=== PATIENT | male | born 1980 | race Hispanic/Latino ===

== ENCOUNTER 2017-02-19 22:22 | Emergency (ER) | payer OTHER ==
[2017-02-19 23:16] LABS: Basophils % (Auto) 0.6 % (0.0-1.8); Eosinophils % (Auto) 1.9 % (0.0-4.3); Hematocrit 43.4 % (35.5-45.6); Hemoglobin 14.5 gm/dl (11.8-15.2); Mean Corpuscular HGB Conc 33 % (32-34); Mean Corpuscular Hemoglobin 28 pg (28-32); Mean Corpuscular Volume 84 fl (84-94); Platelet Count 216 K/mm3 (140-440); Red Blood Count 5.18 M/mm3 (3.65-5.03); Red Cell Distribution Width 13.2 % (13.2-15.2); White Blood Count 7.8 K/mm3 (4.5-11.0)
[2017-02-19 23:29] LABS: INR 1.02 (0.87-1.13)
[2017-02-19 23:30] LABS: Partial Thromboplastin Time 28.4 Sec. (24.2-36.6)
[2017-02-19 23:41] LABS: Anion Gap 17 mmol/L; BUN/Creatinine Ratio 11.25; Blood Urea Nitrogen 9 mg/dL (9-20); Calcium 8.9 mg/dL (8.4-10.2); Carbon Dioxide 25 mmol/L (22-30); Creatine Kinase MB 1.6 ng/mL (0.0-4.0); Glucose 99 mg/dL (75-100); Potassium 4.1 mmol/L (3.6-5.0); Sodium 140 mmol/L (137-145)
[2017-02-20] MEDS ORDERED: NITROSTAT SL PRN (05:06)
[2017-02-20] MEDS ORDERED: TORADOL IM ONE (06:17)
--- NOTE | 2017-02-20 06:18 | Emergency Department Report ---
ED General Adult HPI - General Chief complaint: Chest Pain Stated complaint: CHEST PAIN Time Seen by Provider: 02/20/17 06:09 Source: patient, family Mode of arrival: Ambulatory Limitations: No Limitations - History of Present Illness Initial comments: This is a 37-year-old male. He is previously unknown to me. He reports a past medical history of "enlarged heart." His diversity specialist is Dr. Bermudez with [facility]. The patient presents to the ER complaining of chest pain. The chest pain has been present for 4 days. He reports that it is stinging in nature. He reports pain that increases with deep inspiration. He denies cough, and endorses decreased exercise tolerance. He denies diaphoresis, he also endorses tingling in the dorsal aspect of his left foot, and tingling from his left bicep distal. He denies recent trips greater than 4 hours, recent hospital admissions, there is no calf pain, there is no hematemesis. There is no bright red blood per rectum. -: Gradual Location: chest, left, upper extremity, lower extremity Severity scale (0 -10): 9 Quality: other (stinging) Consistency: intermittent Improves with: none Worsens with: none Associated Symptoms: chest pain - Related Data Previous Rx's Medication Instructions Recorded Last Taken Type Ketorolac [Toradol] 10 mg PO Q6H PRN #20 tablet 02/20/17 Unknown Rx Allergies Allergy/AdvReac Type Severity Reaction Status Date / Time No Known Allergies Allergy Verified 02/19/17 22:30 ED Review of Systems ROS: Stated complaint: CHEST PAIN Other details as noted in HPI Eyes: as per HPI ENT: as per HPI Respiratory: see HPI Cardiovascular: chest pain Gastrointestinal: as per HPI Genitourinary: as per HPI Musculoskeletal: as per HPI Skin: as per HPI Neurological: as per HPI Psychiatric: as per HPI Hematological/Lymphatic: as per HPI ED Past Medical Hx - Past Medical History Previous Medical History?: No - Surgical History Past Surgical History?: No - Social History Smoking Status: Never Smoker Substance Use Type: None - Medications Home Medications: Home Medications Medication Instructions Recorded Confirmed Last Taken Type Ketorolac [Toradol] 10 mg PO Q6H PRN #20 tablet 02/20/17 Unknown Rx ED Physical Exam - General Limitations: No Limitations General appearance: alert, in no apparent distress - Head Head exam: Present: atraumatic, normocephalic - Eye Eye exam: Present: normal appearance, EOMI. Absent: nystagmus - ENT ENT exam: Present: normal exam, normal orophraynx, mucous membranes moist, normal external ear exam - Neck Neck exam: Present: normal inspection, full ROM. Absent: tenderness, meningismus - Respiratory Respiratory exam: Present: normal lung sounds bilaterally. Absent: respiratory distress, wheezes, rales, rhonchi, stridor, chest wall tenderness - Cardiovascular Cardiovascular Exam: Present: regular rate, normal rhythm. Absent: systolic murmur, diastolic murmur, rubs, gallop - GI/Abdominal GI/Abdominal exam: Present: soft, normal bowel sounds. Absent: distended, tenderness, guarding, rebound, rigid, pulsatile mass - Rectal Rectal exam: Present: deferred - Extremities Exam Extremities exam: Present: normal inspection, full ROM, normal capillary refill. Absent: tenderness, pedal edema, joint swelling, calf tenderness - Back Exam Back exam: Present: normal inspection, full ROM. Absent: tenderness, CVA tenderness (R), CVA tenderness (L), muscle spasm, paraspinal tenderness, vertebral tenderness - Neurological Exam Neurological exam: Present: alert, oriented X3, normal gait, other (Extraocular movements intact. Tongue midline. No facial droop. Facial sensation intact to light touch in the V1, V2, V3 distribution bilaterally. 5 and 5 strength in 4 extremities.. Sensation is intact to light touch in 4 extremities.). Absent : motor sensory deficit - Psychiatric Psychiatric exam: Present: normal affect, normal mood - Skin Skin exam: Present: warm, dry, intact, normal color. Absent: rash ED Course Vital Signs 02/19/17 02/20/17 02/20/17 22:31 05:00 05:06 Temperature 98.4 F Pulse Rate 95 H 71 79 Respiratory 18 14 18 Rate Blood Pressure Blood Pressure 130/87 [Right] O2 Sat by Pulse 100 97 96 Oximetry 02/20/17 02/20/17 02/20/17 05:07 05:09 05:10 Temperature Pulse Rate 73 88 Respiratory 18 13 Rate Blood Pressure Blood Pressure [Right] O2 Sat by Pulse 100 96 Oximetry 02/20/17 02/20/17 02/20/17 05:12 05:15 05:20 Temperature Pulse Rate 73 85 90 Respiratory 15 16 Rate Blood Pressure 125/72 118/82 118/82 Blood Pressure [Right] O2 Sat by Pulse 90 93 Oximetry 02/20/17 02/20/17 02/20/17 05:26 05:30 05:36 Temperature Pulse Rate 71 103 H Respiratory 17 16 15 Rate Blood Pressure 125/90 114/75 114/75 Blood Pressure [Right] O2 Sat by Pulse 93 95 92 Oximetry 02/20/17 02/20/17 02/20/17 05:40 05:45 05:50 Temperature Pulse Rate 83 80 93 H Respiratory 16 13 16 Rate Blood Pressure 114/75 118/78 118/78 Blood Pressure [Right] O2 Sat by Pulse 94 95 94 Oximetry 02/20/17 02/20/17 02/20/17 05:56 06:00 06:06 Temperature Pulse Rate 80 101 H 83 Respiratory 18 14 16 Rate Blood Pressure 118/78 111/77 111/77 Blood Pressure [Right] O2 Sat by Pulse 95 95 94 Oximetry 02/20/17 02/20/17 02/20/17 06:10 06:15 06:24 Temperature Pulse Rate 81 72 Respiratory 15 17 Rate Blood Pressure 111/77 111/77 Blood Pressure [Right] O2 Sat by Pulse 92 96 97 Oximetry 02/20/17 02/20/17 02/20/17 06:26 06:30 06:36 Temperature Pulse Rate 72 78 76 Respiratory 20 17 13 Rate Blood Pressure 118/78 118/78 118/78 Blood Pressure [Right] O2 Sat by Pulse 97 95 94 Oximetry 02/20/17 02/20/17 02/20/17 06:40 06:46 06:50 Temperature Pulse Rate 75 80 78 Respiratory 17 13 13 Rate Blood Pressure 118/78 118/78 118/78 Blood Pressure [Right] O2 Sat by Pulse 95 95 95 Oximetry 02/20/17 02/20/17 02/20/17 06:56 07:00 07:06 Temperature Pulse Rate 84 85 86 Respiratory 12 17 20 Rate Blood Pressure 118/78 118/78 118/78 Blood Pressure [Right] O2 Sat by Pulse 96 95 96 Oximetry 02/20/17 02/20/17 02/20/17 07:10 07:16 07:20 Temperature Pulse Rate 93 H 89 93 H Respiratory 15 13 13 Rate Blood Pressure 118/78 118/78 118/78 Blood Pressure [Right] O2 Sat by Pulse 93 94 95 Oximetry 02/20/17 02/20/17 02/20/17 07:26 07:30 07:36 Temperature Pulse Rate 84 82 96 H Respiratory 12 14 17 Rate Blood Pressure 118/78 118/78 118/78 Blood Pressure [Right] O2 Sat by Pulse 94 94 94 Oximetry 02/20/17 02/20/17 12:24 13:07 Temperature Pulse Rate 84 Respiratory 18 20 Rate Blood Pressure Blood Pressure 125/87 [Right] O2 Sat by Pulse 100 Oximetry - Reevaluation(s) Reevaluation #1: 02/20/17 07:46 Differential diagnosis: Pleuritis, pneumonia, acute coronary syndrome, GERD, gastritis, reflux Assessment and plan: 37-year-old male with 4 days of chest pain. He is afebrile with reassuring vital signs, EKG morphologically normal 2, no pulmonary embolus or DVT risk factors, low risk by well's criteria, d-dimer negative, low risk by MANDA score, low risk by heart score. Troponin is negative 3. EKG morphologically normal 2, chest x-ray does not demonstrate significant disease. Patient is instructed to follow up with his outpatient diversity specialist within the next 48-72 hours for outpatient acute coronary syndrome risk stratification. Reevaluation #2: 02/20/17 08:20 Case is discussed with the covering diversity specialist, , who recommends an exercise stress test. This has been ordered. Of note, the patient is able to ambulate around the emergency room without desaturation. He is resting comfortable. Reevaluation #3: 02/20/17 12:[address] Rivas, stress test normal. Patient will be discharged with medication for pain, instructions to follow up with outpatient primary care and cardiology. ED Medical Decision Making - Lab Data Result diagrams: 02/19/17 23:04 02/19/17 23:04 Vital Signs 02/19/17 02/20/17 02/20/17 22:31 05:00 05:06 Temperature 98.4 F Pulse Rate 95 H 71 79 Respiratory 18 14 18 Rate Blood Pressure Blood Pressure 130/87 [Right] O2 Sat by Pulse 100 97 96 Oximetry 02/20/17 02/20/17 02/20/17 05:07 05:09 05:10 Temperature Pulse Rate 73 88 Respiratory 18 13 Rate Blood Pressure Blood Pressure [Right] O2 Sat by Pulse 100 96 Oximetry 02/20/17 02/20/17 02/20/17 05:12 05:15 05:20 Temperature Pulse Rate 73 85 90 Respiratory 15 16 Rate Blood Pressure 125/72 118/82 118/82 Blood Pressure [Right] O2 Sat by Pulse 90 93 Oximetry 02/20/17 02/20/17 02/20/17 05:26 05:30 05:36 Temperature Pulse Rate 71 103 H Respiratory 17 16 15 Rate Blood Pressure 125/90 114/75 114/75 Blood Pressure [Right] O2 Sat by Pulse 93 95 92 Oximetry 02/20/17 02/20/17 02/20/17 05:40 05:45 05:50 Temperature Pulse Rate 83 80 93 H Respiratory 16 13 16 Rate Blood Pressure 114/75 118/78 118/78 Blood Pressure [Right] O2 Sat by Pulse 94 95 94 Oximetry 02/20/17 02/20/17 02/20/17 05:56 06:00 06:06 Temperature Pulse Rate 80 101 H 83 Respiratory 18 14 16 Rate Blood Pressure 118/78 111/77 111/77 Blood Pressure [Right] O2 Sat by Pulse 95 95 94 Oximetry 02/20/17 02/20/17 02/20/17 06:10 06:15 06:24 Temperature Pulse Rate 81 72 Respiratory 15 17 Rate Blood Pressure 111/77 111/77 Blood Pressure [Right] O2 Sat by Pulse 92 96 97 Oximetry 02/20/17 02/20/17 02/20/17 06:26 06:30 06:36 Temperature Pulse Rate 72 78 76 Respiratory 20 17 13 Rate Blood Pressure 118/78 118/78 118/78 Blood Pressure [Right] O2 Sat by Pulse 97 95 94 Oximetry 02/20/17 02/20/17 02/20/17 06:40 06:46 06:50 Temperature Pulse Rate 75 80 78 Respiratory 17 13 13 Rate Blood Pressure 118/78 118/78 118/78 Blood Pressure [Right] O2 Sat by Pulse 95 95 95 Oximetry 02/20/17 02/20/17 02/20/17 06:56 07:00 07:06 Temperature Pulse Rate 84 85 86 Respiratory 12 17 17 Rate Blood Pressure 118/78 118/78 118/78 Blood Pressure [Right] O2 Sat by Pulse 96 95 96 Oximetry 02/20/17 02/20/17 02/20/17 07:10 07:16 07:20 Temperature Pulse Rate 93 H 89 93 H Respiratory 15 13 13 Rate Blood Pressure 118/78 118/78 118/78 Blood Pressure [Right] O2 Sat by Pulse 93 94 95 Oximetry 02/20/17 02/20/17 02/20/17 07:26 07:30 07:36 Temperature Pulse Rate 84 82 96 H Respiratory 12 14 17 Rate Blood Pressure 118/78 118/78 118/78 Blood Pressure [Right] O2 Sat by Pulse 94 94 94 Oximetry Lab Results 02/19/17 02/19/17 02/19/17 Range/Units 23:04 23:04 23:04 WBC 7.8 (4.5-11.0) K/mm3 RBC 5.18 H (3.65-5.03) M/mm3 Hgb 14.5 (11.8-15.2) gm/dl Hct 43.4 (35.5-45.6) % MCV 84 (84-94) fl MCH 28 (28-32) pg MCHC 33 (32-34) % RDW 13.2 (13.2-15.2) % Plt Count 216 (140-440) K/mm3 Lymph % (Auto) 27.7 (13.4-35.0) % [place] % (Auto) 9.0 H (0.0-7.3) % Eos % (Auto) 1.9 (0.0-4.3) % Baso % (Auto) 0.6 (0.0-1.8) % Lymph # 2.2 (1.2-5.4) K/mm3 [place] # 0.7 (0.0-0.8) K/mm3 Eos # 0.2 (0.0-0.4) K/mm3 Baso # 0.0 (0.0-0.1) K/mm3 Seg Neutrophils % 60.8 (40.0-70.0) % Seg Neutrophils # 4.7 (1.8-7.7) K/mm3 PT 13.3 (12.2-14.9) Sec. INR 1.02 (0.87-1.13) APTT 28.4 (24.2-36.6) Sec. D-Dimer (0-234) ng/mlDDU Sodium 140 (137-145) mmol/L Potassium 4.1 (3.6-5.0) mmol/L Chloride 102.0 (98-107) mmol/L Carbon Dioxide 25 (22-30) mmol/L Anion Gap 17 mmol/L BUN 9 (9-20) mg/dL Creatinine 0.8 (0.8-1.5) mg/dL Estimated GFR > 60 ml/min BUN/Creatinine Ratio 11.25 % Glucose 99 (75-100) mg/dL Calcium 8.9 (8.4-10.2) mg/dL Total Creatine Kinase (55-170) units/L CK-MB (CK-2) (0.0-4.0) ng/mL CK-MB (CK-2) Rel Index (0-4) Troponin T < 0.010 (0.00-0.029) ng/mL 02/19/17 02/20/17 02/20/17 Range/Units 23:04 02:28 05:00 WBC (4.5-11.0) K/mm3 RBC (3.65-5.03) M/mm3 Hgb (11.8-15.2) gm/dl Hct (35.5-45.6) % MCV (84-94) fl MCH (28-32) pg MCHC (32-34) % RDW (13.2-15.2) % Plt Count (140-440) K/mm3 Lymph % (Auto) (13.4-35.0) % [place] % (Auto) (0.0-7.3) % Eos % (Auto) (0.0-4.3) % Baso % (Auto) (0.0-1.8) % Lymph # (1.2-5.4) K/mm3 [place] # (0.0-0.8) K/mm3 Eos # (0.0-0.4) K/mm3 Baso # (0.0-0.1) K/mm3 Seg Neutrophils % (40.0-70.0) % Seg Neutrophils # (1.8-7.7) K/mm3 PT (12.2-14.9) Sec. INR (0.87-1.13) APTT (24.2-36.6) Sec. D-Dimer (0-234) ng/mlDDU Sodium (137-145) mmol/L Potassium (3.6-5.0) mmol/L Chloride (98-107) mmol/L Carbon Dioxide (22-30) mmol/L Anion Gap mmol/L BUN (9-20) mg/dL Creatinine (0.8-1.5) mg/dL Estimated GFR ml/min BUN/Creatinine Ratio % Glucose (75-100) mg/dL Calcium (8.4-10.2) mg/dL Total Creatine Kinase 154 (55-170) units/L CK-MB (CK-2) 1.6 (0.0-4.0) ng/mL CK-MB (CK-2) Rel Index 1.0 (0-4) Troponin T < 0.010 < 0.010 (0.00-0.029) ng/mL 02/20/17 Range/Units 06:29 WBC (4.5-11.0) K/mm3 RBC (3.65-5.03) M/mm3 Hgb (11.8-15.2) gm/dl Hct (35.5-45.6) % MCV (84-94) fl MCH (28-32) pg MCHC (32-34) % RDW (13.2-15.2) % Plt Count (140-440) K/mm3 Lymph % (Auto) (13.4-35.0) % [place] % (Auto) (0.0-7.3) % Eos % (Auto) (0.0-4.3) % Baso % (Auto) (0.0-1.8) % Lymph # (1.2-5.4) K/mm3 [place] # (0.0-0.8) K/mm3 Eos # (0.0-0.4) K/mm3 Baso # (0.0-0.1) K/mm3 Seg Neutrophils % (40.0-70.0) % Seg Neutrophils # (1.8-7.7) K/mm3 PT (12.2-14.9) Sec. INR (0.87-1.13) APTT (24.2-36.6) Sec. D-Dimer < 135.00 (0-234) ng/mlDDU Sodium (137-145) mmol/L Potassium (3.6-5.0) mmol/L Chloride (98-107) mmol/L Carbon Dioxide (22-30) mmol/L Anion Gap mmol/L BUN (9-20) mg/dL Creatinine (0.8-1.5) mg/dL Estimated GFR ml/min BUN/Creatinine Ratio % Glucose (75-100) mg/dL Calcium (8.4-10.2) mg/dL Total Creatine Kinase (55-170) units/L CK-MB (CK-2) (0.0-4.0) ng/mL CK-MB (CK-2) Rel Index (0-4) Troponin T (0.00-0.029) ng/mL - EKG Data 02/20/17 07:46 EKG #1 demonstrates normal sinus, 85 bpm, normal intervals, normal axis, not morphologically consistent with STEMI. EKG #2 demonstrates normal sinus, 72 bpm, normal intervals, normal axis, not morphologically consistent with STEMI. - Radiology Data Radiology results: image reviewed interpreted by me: X-ray of the chest is negative for acute disease Critical care attestation.: If time is entered above; I have spent that time in minutes in the direct care of this critically ill patient, excluding procedure time. ED Disposition Clinical Impression: Chest pain Disposition: DISCHARGED TO HOME OR SELFCARE Is pt being admited?: No Does the pt Need Aspirin: No Condition: Stable Instructions: Chest Pain (ED) Additional Instructions: Continue current outpatient medications. Follow-up with a primary care physician or diversity specialist within the next week. Return to the ER right away with new pain, worsened pain, migration of pain, fevers or chills, nausea or vomiting, inability to tolerate liquids. Prescriptions: Ketorolac [Toradol] 10 mg PO Q6H PRN #20 tablet PRN Reason: Pain Referrals: ELOY RIVAS MD [Staff Physician] - 3-5 Days ARTIE ARRIAZA MD [Primary Care Provider] - 3-5 Days KRISTA PHILIP MD [Staff Physician] - 3-5 Days Forms: Work/School Release Form(ED)
--- NOTE | 2017-02-20 07:47 | XRay Report ---
ROUTINE CHEST, TWO VIEWS: HISTORY: chest pain. The trachea, heart, mediastinal contour, lung [place]on and bony thorax are unremarkable. IMPRESSION: Unremarkable chest x-ray.
[2017-02-20] MEDS ORDERED: TYLENOL ONE (12:16)
[2017-02-20] MEDS ORDERED: TYLENOL PO ONE (12:17)
[2017-02-20 13:08] VITALS: BP 125/87
--- NOTE | 2017-02-20 13:13 | Treadmill Report ---
REASON FOR TEST: Chest pain. The patient exercised for 8 minutes and 42 seconds of Ralph protocol, reaching stage 3 and achieving 9.5 mets. Peak heart rate was 142 beats per minute. Peak blood pressure was 156/90. There was no chest pain. Test was stopped for fatigue. Baseline ECG was sinus rhythm. With exercise, there were no ST changes of ischemia. No significant dysrhythmias were noted. CONCLUSION: 1. Above average exercise capacity. 2. No chest pain. 3. No ST changes of ischemia. 4. No significant dysrhythmias. This is a negative exercise ECG test. JOB# [id number] CA/NTS
== END 2017-02-20 13:07 | disposition home or self-care (01) ==
LOC: ED 22:22
DX: R07.89 Other chest pain (principal)
CPT/HCPCS: 36415; 71020; 80048; 82550; 82553; 84484; 85025; 85379; 85610; 85730; 93005; 93010; 93017; 96372; 99285; J1885

== ENCOUNTER 2017-07-19 09:01 | Day surgery (SDC) | payer OTHER ==
[2017-07-19] MEDS ORDERED: NACL 0.9% 1000 ML 1,000 ML IV SCH (10:00)
[2017-07-19] MEDS ORDERED: WATER FOR IRRIG STERILE IR ONE ×2 (10:18)
[2017-07-19] MEDS ORDERED: WATER FOR IRRIG STERILE ONE (10:19)
--- NOTE | 2017-07-19 10:23 | Anesthesia Day of Surgery ---
Anesthesia Day of Surgery - Day of Surgery Patient Examined: Yes Patient H&P Reviewed: Yes Patient is NPO: Yes
--- NOTE | 2017-07-19 10:25 | Anesthesia Consultation ---
Anesthesia Consult and Med Hx Date of service: 07/19/17 - Airway Anesthetic Teeth Evaluation: Good (missing lower right incisor) ROM Head & Neck: Adequate Mental/Hyoid Distance: Adequate Mallampati Class: Class II Intubation Access Assessment: Probably Good - Pulmonary Exam CTA: Yes - Cardiac Exam Cardiac Exam: RRR - Pre-Operative Health Status ASA Pre-Surgery Classification: ASA2 Proposed Anesthetic Plan: MAC - Cardiovascular System Hx Hypertension: No (Borderline enlarged heart. h/o syncope 6 yrs ago.) - Other Systems Hx Alcohol Use: No Hx Substance Use: No
[2017-07-19] MEDS ORDERED: DIPRIVAN 10 MG/ML IV ONE ×3 (10:50→10:51)
--- NOTE | 2017-07-19 11:38 | Discharge Summary ---
Short Stay Discharge Plan Activity: other (march d/c when awake & stable. cl liq diet. advance to reg as [place]. rto sunday) Follow up with: ARTIE ARRIAZA MD [Staff Physician] - 07/23/17
--- NOTE | 2017-07-19 11:44 | Post Anesthesia Evaluation ---
- Post Anesthesia Evaluation Patient Participated: Yes Airway Patent: Yes Stable Respiratory Function: Yes Nausea/Vomiting: No Temp > 96.8F: Yes Pain Manageable: Yes Adequeate Hydration: Yes Anesthesia Complications: No
[2017-07-19 12:01] VITALS: BP 135/81
--- NOTE | 2017-07-19 15:35 | Operative Report ---
COLONOSCOPY REPORT PREOPERATIVE HISTORY: The patient is a 37-year-old gentleman who is status post multiple hemorrhoid bandings in the past. The patient is complaining of severe anal pain at this time reason for this colonoscopy. A rectal exam was also performed in the office, which revealed no evidence of any external hemorrhoids or palpable internal hemorrhoids. No other palpable masses on rectal exam. PROCEDURE: Complete colonoscopy. SURGEON: Ozzie Callahan MD ANESTHESIA: IV sedation. COMPLICATIONS: No complications. FINDINGS: 1. Small superficial abrasion in the perianal area, but no true fissure within the anal canal noted. 2. Very small internal hemorrhoids noted on retroflexion. 3. Scattered diverticula, no other gross pathology. DESCRIPTION OF PROCEDURE: The patient was taken to the GI suite, placed in left lateral decubitus position. Rectal exam was once again performed. No anal masses noted. The anus was carefully inspected with the light of the colonoscope, but no gross anal pathology seen. Scope was then gently introduced and advanced up to the cecum. Entire colon was visualized. Retroflexion of the scope revealed very small nondescript internal hemorrhoids. No other gross anal pathology or distal rectal pathology. No other findings as described. The patient tolerated the procedure well and left the GI suite in stable condition. JOB# [id number] [place]
== END 2017-07-19 09:02 | disposition home or self-care (01) ==
LOC: GIO 09:01
PROVIDERS: ATTEND Surgery
DX: S30.817A Abrasion of anus, initial encounter (principal); K64.8 Other hemorrhoids; K57.30 Diverticulosis of large intestine without perforation or abscess without bleeding; Z91.041 Radiographic dye allergy status; X58.XXXA Exposure to other specified factors, initial encounter
CPT/HCPCS: 45378; J2704; J7030